=== PATIENT | male | born 1965 | race Caucasian/White ===

== ENCOUNTER → 2016-08-30 | Outpatient (CLI) | payer OTHER ==
[~2016-08-30] MED LIST: DECADRON1 MG PO; DECADRON4 MG PO; KEPPRA1000 MG PO; NORVASC5 MG PO; PEPCID20 MG PO; PERCOCET 5-3251 EACH PO; PERIDEX15 ML; TEMODAR PO; TEMODAR100 MG PO; TYLENOL650 MG R; ZOFRAN8 M1 PO
== END | disposition disaster alternative care site (69) ==
LOC: GRAD 09:54
DX: C71.9 Malignant neoplasm of brain, unspecified (principal); E66.9 Obesity, unspecified; L70.8 Other acne; R93.0 Abnormal findings on diagnostic imaging of skull and head, not elsewhere classified; R60.0 Localized edema